=== PATIENT | female | born 1990 | race Caucasian/White ===

== ENCOUNTER 2017-10-29 14:50 | Emergency (ER) | payer BC ==
[2017-10-29 15:03] VITALS: TEMP 97.1
[2017-10-29] MEDS ORDERED: SODIUM CHLORIDE 0.9% 1000 ML SOL IV SCH (15:30)
[2017-10-29 15:39] LABS: BASOPHILS % (AUTO) 0 % (0-3); EOSINOPHILS % (AUTO) 1 % (0-9); HEMATOCRIT 36 % (35-47); HEMOGLOBIN 12.7 gm/dl (12.0-15.5); LYMPHOCYTES % (AUTO) 18.87 % (10-50); MEAN CORPUSCULAR HEMOGLOBIN 32.2 pg (27.0-32.0); MEAN CORPUSCULAR HGB CONC 35.2 gm/dl (32.0-36.0); MEAN CORPUSCULAR VOLUME 92 fL (81-99); MONOCYTES % (AUTO) 6.8 % (0-12); NEUTROPHILS % (AUTO) 73.1 % (37-80)
[2017-10-29 15:41] LABS: ALBUMIN 2.8 gm/dl (3.4-5.0); BILIRUBIN,TOTAL 0.3 mg/dl (0.2-1.0); CALCIUM 8.9 mg/dl (8.5-10.1); CARBON DIOXIDE 23.7 mEq/L (21-32); CREATININE 0.61 mg/dl (0.60-1.00); POTASSIUM 3.3 mMol/L (3.5-5.1); TOTAL PROTEIN 7.1 gm/dl (6.4-8.2); URIC ACID 3.3 mg/dl (2.6-7.2)
[2017-10-29 15:46] VITALS: RESP 20; O2SAT 99
[2017-10-29] MEDS ORDERED: POTASSIUM CHLORIDE 10 MEQ TER PO ONE (15:52)
[2017-10-29] MEDS ORDERED: POTASSIUM CHLORIDE 10 MEQ TER ONE (16:18)
[2017-10-29 16:24] LABS: APPEARANCE,URINE Slightly Cloudy; BILIRUBIN,URINE NEGATIVE (NEGATIVE); COLOR,URINE Yellow; GLUCOSE, URINE (UA) NEGATIVE (NEGATIVE); KETONES,URINE TRACE (NEGATIVE); LEUKOCYTE ESTERASE ,URINE NEGATIVE (NEGATIVE); NITRATE,URINE NEGATIVE (NEGATIVE); OCCULT BLOOD,URINE NEGATIVE (NEG-TRACE); UROBILINOGEN,URINE 0.2 (0.2-1.0 EU)
[2017-10-29 16:43] LABS: RBC,URINE NEG (0-3AV/HPF)
[2017-10-29 16:44] LABS: BACTERIA NEGATIVE (< 1+); CRYSTALS 1+ AMORPH PHOSPHATES (0-3 AVE/HPF)
[2017-10-29 17:33] VITALS: BP 105/61; PULSE 72
== END 2017-10-29 17:14 | disposition home or self-care (01) ==
LOC: ED 14:50
DX: E87.6 Hypokalemia (principal); R11.0 Nausea; R20.2 Paresthesia of skin; Z3A.31 31 weeks gestation of pregnancy; R40.2142 Coma scale, eyes open, spontaneous, at arrival to emergency department
CPT/HCPCS: 59025; 80053; 81001; 84550; 85025; 85730; 96365; 99283; 99284; A9270-GY